=== PATIENT | male | born 1995 | race American Indian/Alaskan Native ===

== ENCOUNTER 2016-12-07 20:05 | Emergency (ER) | payer SELFPAY ==
[2016-12-07] MEDS ORDERED: MOTRIN PO ONE (23:38)
[2016-12-07] MEDS ORDERED: BACTRIM DS PO ONE (23:39)
[2016-12-07] MEDS ORDERED: KEFLEX PO ONE (23:39)
--- NOTE | 2016-12-07 23:40 | Emergency Department Report ---
Abscess Boil HPI - HPI Chief Complaint: Skin/Abscess/Foreign Body Stated Complaint: CYST UNDER RT ARM Time Seen by Provider: 12/07/16 23:30 Duration: 2 Days Location: Upper Extremity Severity: Mild History: Yes Pain, No Fever, No Purulent Drainage, No Numbness, No Foreign Body , No Previous History, No Insect Bite HPI: 20-year-old male past medical history none presents with complaint of 2-3 days of pain in his right axillary region. Mild amount of erythema. Denies any fever or chills. Home Medications: Previous Rx's Medication Instructions Recorded Last Taken Type Cephalexin [Keflex] 500 mg PO BID #14 capsule 12/08/16 Unknown Rx Ibuprofen [Motrin] 600 mg PO Q8H PRN #30 tablet 12/08/16 Unknown Rx Sulfamethoxazole/Trimethoprim 1 each PO BID #14 tablet 12/08/16 Unknown Rx [Bactrim DS TAB] Allergies/Adverse Reactions: Allergies Allergy/AdvReac Type Severity Reaction Status Date / Time No Known Allergies Allergy Verified 12/08/16 00:10 ED Review of Systems ROS: Stated complaint: CYST UNDER RT ARM Other details as noted in HPI Constitutional: denies: chills, fever Eyes: denies: eye pain, eye discharge, vision change ENT: denies: ear pain, throat pain Respiratory: denies: cough, shortness of breath, wheezing Cardiovascular: denies: chest pain, palpitations Endocrine: no symptoms reported Gastrointestinal: denies: abdominal pain, nausea, diarrhea Genitourinary: denies: urgency, dysuria Musculoskeletal: denies: back pain, joint swelling, arthralgia Skin: as per HPI (right axillary abscess). denies: rash, lesions Neurological: denies: headache, weakness, paresthesias Psychiatric: denies: anxiety, depression Hematological/Lymphatic: denies: easy bleeding, easy bruising ED Past Medical Hx - Past Medical History Previous Medical History?: No - Surgical History Past Surgical History?: No - Social History Smoking Status: Current Every Day Smoker Substance Use Type: Alcohol - Medications Home Medications: Home Medications Medication Instructions Recorded Confirmed Last Taken Type Cephalexin [Keflex] 500 mg PO BID #14 capsule 12/08/16 Unknown Rx Ibuprofen [Motrin] 600 mg PO Q8H PRN #30 tablet 12/08/16 Unknown Rx Sulfamethoxazole/Trimethoprim 1 each PO BID #14 tablet 12/08/16 Unknown Rx [Bactrim DS TAB] ED Abscess Boil Physical Exam - Exam General: Vital signs noted. No distress. Alert and acting appropriately. Front/Back of Body, Lg (Color): 1 - Abscess approximately 3 cm in diameter here surrounding erythema Size: 3 cm Exam: Yes Tenderness, Yes Fluctuance, Yes Surrounding Cellulites/Erythema, No Lymphangitis, No Crepitation, No Heart Murmur, No Normal Neurologic Exam, No Normal Circulation I & D Note - I & D Note I & D Note: 4 mL of lidocaine with epinephrine infiltrated into region, small 1.5 cm vertical incision made significant amount of purulent drainage and culture sent procedure tolerated well 4 inches of iodoform packing placed into wound, minimal bleeding ED Course Vital Signs 12/07/16 20:11 Temperature 99 F Pulse Rate 75 Respiratory 16 Rate Blood Pressure 149/88 O2 Sat by Pulse 99 Oximetry Critical care attestation.: If time is entered above; I have spent that time in minutes in the direct care of this critically ill patient, excluding procedure time. Critical Care Time: A/P: Right axillary abscess 1-incised and drained 2-wound culture sent 3-Bactrim and Keflex twice a day 7 days 4-Motrin when necessary ED Medical Decision Making - Medical Decision Making A/P: Right axillary abscess 1-incised and drained, wound packed. I instructed patient to remove packing tomorrow morning 2-Bactrim and Keflex twice a day 7 days 3-Motrin 600 when necessary 4-culture sent ED Disposition Clinical Impression: Abscess Disposition: DISCHARGED TO HOME OR SELFCARE Is pt being admited?: No Does the pt Need Aspirin: No Condition: Stable Instructions: Abscess Incision and Drainage (ED), Abscess (ED) Prescriptions: Cephalexin [Keflex] 500 mg PO BID #14 capsule Ibuprofen [Motrin] 600 mg PO Q8H PRN #30 tablet PRN Reason: Pain Sulfamethoxazole/Trimethoprim [Bactrim DS TAB] 1 each PO BID #14 tablet Referrals: PRIMARY CARE,MD [Primary Care Provider] - 3-5 Days Forms: Accompanied Note, Work/School Release Form(ED) Time of Disposition: 00:29
[2016-12-08] MEDS ORDERED: XYLOCAINE 2%/ EPI 1:200,000 INFILTRATI ONE ×2 (00:05→00:31)
[2016-12-08 00:42] VITALS: BP 118/75
[2016-12-08] MEDS ORDERED: XYLOCAINE 1%/ EPI 1:100,000 INFILTRATI NR (01:00)
== END 2016-12-08 00:42 | disposition home or self-care (01) ==
LOC: ED 20:05
DX: L02.411 Cutaneous abscess of right axilla (principal); F17.200 Nicotine dependence, unspecified, uncomplicated
CPT/HCPCS: 87076; 87116; 87186; 99282